=== PATIENT | male | born 1990 | race Caucasian/White ===

== ENCOUNTER 2023-06-18 10:23 | Emergency (ER) | payer SELFPAY ==
[2023-06-18] MEDS ORDERED: Ondansetron PF 4 MG/2 ML Vial ONE (10:40)
[2023-06-18] MEDS ORDERED: Sodium Chloride 0.9% 1,000 ML ONE (10:40)
[2023-06-18] MEDS ORDERED: Ketorolac Tromethamine 30 MG (1 mL) VIAL ONE (10:40)
[2023-06-18 11:02] LABS: #Basophils 0.1 thou/uL (0.0-0.2); #Lymphocytes 0.8 thou/uL (1.20-3.40); #Monocytes 0.9 thou/uL (0.11-0.59); #Neutrophils 4.5 thou/uL (1.40-6.50); %Basophils 2.1 % (0.0-1.0); %Eosinophils 0.1 % (0.0-10.0); %Lymphocytes 13.1 % (21.0-51.0); %Neutrophils 70.8 % (42.0-75.0); Hemoglobin 17.3 g/dL (14.0-18.0); Mean Corpuscular Hemoglobin 27.7 pg (27.0-31.0); Mean Corpuscular Volume 86.8 fl (78.0-98.0); Mean Platelet Volume 8.5 fL (7.4-10.4); Platelet Count 242 10x3/uL (130-400); RBC Distribution Width 11.8 % (11.5-14.5); Red Blood Cell (RBC) Count 6.23 mill/uL (4.70-6.10); White Blood Cell (WBC) Count 6.4 10x3/uL (4.8-10.8)
[2023-06-18 11:17] LABS: ALT (SGPT) 26 U/L (8-55); AST (SGOT) 22 U/L (5-34); Albumin 4.4 g/dL (3.5-5.0); Alkaline Phosphatase 51 U/L (40-110); Anion Gap 16 mmol/L (10-20); BUN (Urea Nitrogen) 7 mg/dL (8.9-20.6); Bilirubin, Total 0.9 mg/dL (0.2-1.2); Calc. Creatinine Clearance 0 mL/min (70-130); Calcium 9.1 mg/dL (7.8-10.44); Carbon Dioxide 20 mmol/L (22-29); Chloride 102 mmol/L (98-107); Estimated GFR 91; Globulin 3.4 g/dL (2.4-3.5); Glucose 106 mg/dL (70-105); Lipase 12 U/L (8-78); Potassium 3.5 mmol/L (3.5-5.1); Protein, Total 7.8 g/dL (6.0-8.3); Sodium 134 mmol/L (136-145); Troponin I Less than 0.010 ng/mL (< 0.028)
[2023-06-18 11:41] LABS: SARS-CoV-2 NAA Rapid Test Not Detected (NotDetected)
== END 2023-06-18 12:12 | disposition home or self-care (01) ==
LOC: MADERS 10:23
DX: J10.1 Influenza due to other identified influenza virus with other respiratory manifestations (principal); J20.9 Acute bronchitis, unspecified; F17.210 Nicotine dependence, cigarettes, uncomplicated
CPT/HCPCS: 71045; 80053; 83690; 84484; 85025; 93005; 96361; 96374; 96375; J1885; J2405; J7050